=== PATIENT | male | born 1960 | race Caucasian/White ===

== ENCOUNTER 2023-09-02 07:52 | Day surgery (SDC) | payer OTHER ==
--- NOTE | 2023-09-01 13:56 | RAD REPORT ---
EXAM DESCRIPTION: RAD - Chest Single View - 09/01/2023 1:48 pm CLINICAL HISTORY: PRE-OP Chest pain. COMPARISON: <Comparisons> FINDINGS: Portable technique limits examination quality. The lungs are grossly clear. The heart is normal in size. No displaced fractures. IMPRESSION: No acute intrathoracic process suspected.
[2023-09-01 14:07] LABS: Absolute Lymphocytes (CBC) 1.4 K/uL (0.7-4.9); Hematocrit 41.8 % (39.6-49.0); Lymphocytes % 15.8 % (15.3-44.8); MCV 89.7 fL (80-100); MPV 7.4 fL (7.6-11.3); Platelets 267 thou/uL (152-406); RBC Red Blood Cell Count 4.66 M/uL (4.33-5.43)
[2023-09-02] MEDS ORDERED: CIPROFLOXACIN 400mg IV 400 MG/200 ML BAG IV ONE (08:33)
[2023-09-02] MEDS ORDERED: NA CHLORIDE 0.9% 1,000 ML ONE (08:33)
[2023-09-02] MEDS ORDERED: ONDANSETRON 4 MG (ODT) TAB ONE (08:40)
[2023-09-02] MEDS ORDERED: FENTANYL CITR 100 MCG/2 ML ONE (09:31)
[2023-09-02] MEDS ORDERED: MIDAZOLAM HCL 2 MG/2 ML INJ ONE (09:31)
[2023-09-02] MEDS ORDERED: ONDANSETRON 4 MG/2 ML VIAL ONE (09:31)
[2023-09-02] MEDS ORDERED: LIDOCAINE 2% MPF 5 ML VIAL ONE (09:31)
[2023-09-02] MEDS ORDERED: propofoL 200 MG/20 ML VIAL IV ONE (09:31)
[2023-09-02 09:48] LABS: Potassium 3.8 mEq/L (3.5-5.1)
[2023-09-02] MEDS: BACITRACIN OINTMENT 14 GM TUBE TOP ONE ×3 (10:20→10:34)
--- NOTE | 2023-09-02 10:24 | P.OP ---
Date of Service: 09/02/23 Preop diagnosis: Thrombosed hemorrhoid Postop diagnosis: Same, thrombosed hemorrhoid x 2 Procedure performed: EUA, proctoscopy and hemorrhoidectomy x 2 Surgeon: Adrian Ramirez MD Cardiology Technician: None Estimated blood loss: Minimal Specimen: Thrombosed hemorrhoid x 2 Findings: Left posterior and left lateral thrombosed hemorrhoid Anesthesia: General Complications: None Drains: None Fluids and blood products: Nonapplicable Disposition: Recovery room Operative note: Patient brought to the OR and placed in supine position. Genera l anesthesia begun. Patient placed in the lithotomy position. Patient prepped and draped in the usual sterile fashion. Exam under anesthesia and proctoscopy revealed 2 external thrombosed hemorrhoids. 1 in the left lateral position and 1 in the left posterior position. Harmonic scalpel used to excise both hemorrhoids. Each labeled and sent to pathology as specimen. Bleeding controlled with cautery. Sterile dressing applied. Patient awakened and taken to recovery room in good general condition. CC: Dr. Hernandez's office
[2023-09-02] MEDS ORDERED: HYDROCODONE/APAP 7.5/325 MG TAB PO PRN (10:27)
[2023-09-02] MEDS ORDERED: TRAMADOL HCL 50 MG TAB ONE (11:48)
[2023-09-02 13:08] VITALS: BP 120/74; TEMP 97; O2SAT 100
--- NOTE | 2023-09-03 15:21 | EKG ---
Test Date: 2023-09-01 Test Time: 14:35:06 Kiln Packer: ADOLFO MEASUREMENT RESULTS: Intervals: Rate: 67 MT: 148 QRSD: 80 QT: 348 QTc: 367 Hudson: P: 59 MT: 148 QRS: 28 T: 47 INTERPRETIVE STATEMENTS: Normal sinus rhythm Normal ECG Compared to ECG 01/25/1995 06:22:00 T-wave abnormality no longer present Electronically Signed On 09-03-23 15:13:33 PATENT DRAFTER by Jesse Levy
== END 2023-09-02 12:20 | disposition home or self-care (01) ==
LOC: OR 07:52
PROVIDERS: ATTEND Surgery
PROC: 06BY0ZC Excision of Hemorrhoidal Plexus, Open Approach (ICD-10-PCS; 2023-09-02)
PROC: 0DJD8ZZ Inspection of Lower Intestinal Tract, Via Natural or Artificial Opening Endoscopic (ICD-10-PCS; 2023-09-02)
PROC: 06BY0ZC Excision of Hemorrhoidal Plexus, Open Approach (ICD-10-PCS; principal; 2023-09-02 10:30)
DX: K64.5 Perianal venous thrombosis (principal); E11.9 Type 2 diabetes mellitus without complications; K21.9 Gastro-esophageal reflux disease without esophagitis; Z88.0 Allergy status to penicillin; Z88.5 Allergy status to narcotic agent
CPT/HCPCS: 93005; 85025; 80048; 36415 ×2; 82947; 88304; 71045; 46320 ×2; 45300; Q0162; J2704; J2001; J2250; J3010; J2405; J0744; J7030

== ENCOUNTER 2025-07-18 11:17 | Day surgery (SDC) | payer OTHER ==
--- NOTE | 2025-07-05 13:46 | RAD REPORT ---
EXAM: Chest Pa And Lat (2 Views) HISTORY: 64 years Male PREOEDURE COMPARISON: No prior exams FINDINGS: LUNGS/PLEURA: The lungs are clear. No pleural effusions or pneumothorax. No pulmonary edema. CARDIAC/MEDIASTINUM: The cardiac silhouette is within normal limits. UPPER ABDOMEN: No significant abnormality. BONES: No acute abnormality. LINES/TUBES/OTHER: N/A IMPRESSION: No evidence of acute cardiopulmonary disease.
[2025-07-05 13:56] LABS: Absolute Lymphocytes (CBC) 1.7 K/uL (0.7-4.9); Hematocrit 43.7 % (39.6-49.0); Hemoglobin 14.4 g/dL (13.6-17.9); MCH 29.5 pg (27.0-35.0); MCHC 32.9 g/dL (32.0-36.0); MCV 89.7 fL (80-100); MPV 7.8 fL (7.6-11.3); Nucleated RBC Absolute Count 0.0 (0-0); Nucleated Red Blood Cells % 0.2 % (0-0); RBC Red Blood Cell Count 4.88 M/uL (4.33-5.43); White Blood Count 8.00 thou/uL (4.3-10.9)
[2025-07-05 14:00] LABS: Urine Microscopic Reflex YN NO UMIC
[2025-07-05 14:06] LABS: PT Prothrombin Time 12.8 SECONDS (10-13.0); Protime INR 1.14
[2025-07-05 14:10] LABS: Anion Gap 8.4 mEq/L (5.0-15.0); BUN Blood Urea Nitrogen 22.0 mg/dL (7-18); Glucose Level 148.0 mg/dL (74-106); Potassium 4.4 mEq/L (3.5-5.1)
[2025-07-18] MEDS: Ringers Lactate 1,000 ML IV ONE (11:46)
[2025-07-18] MEDS ORDERED: FENTANYL CITR 100 MCG/2 ML ONE ×3 (14:09→16:45)
[2025-07-18] MEDS ORDERED: LIDOCAINE 2% MPF 5 ML VIAL ONE (14:09)
[2025-07-18] MEDS ORDERED: ONDANSETRON 4 MG/2 ML VIAL ONE (14:09)
[2025-07-18] MEDS ORDERED: MIDAZOLAM HCL 2 MG/2 ML INJ ONE (14:11)
[2025-07-18] MEDS: CLINDAMYCIN 600MG/D5W 50 ML IV ONE (14:25)
[2025-07-18] MEDS ORDERED: EPHEDRINE SULF 50 MG/ML VIAL ONE (14:38)
[2025-07-18] MEDS: GENTAMICIN 80 MG/100 ML BAG 160 MG/200 ML BAG IV ONE (14:39)
[2025-07-18] MEDS: BUPIVACAINE 0.25% PF 30 ML VIAL ONE (15:06)
[2025-07-18] MEDS ORDERED: Ringers Lactate 1,000 ML IV ONE (16:39)
[2025-07-18] MEDS ORDERED: ROCURONIUM 50 MG/5 ML VIAL IV ONE (16:55)
[2025-07-18] MEDS ORDERED: SUGAMMADEX SODIUM 200 MG/2 ML VIAL IV ONE (17:14)
[2025-07-18] MEDS ORDERED: BACITRACIN OINTMENT 14 GM TUBE TOP ONE (17:41)
--- NOTE | 2025-07-18 17:53 | P.OP ---
Date of Service: 07/18/25 Preop diagnosis: Right inguinal hernia Postop diagnosis: Same, right direct inguinal hernia Procedure performed: Repair of right inguinal hernia with Marlex mesh Surgeon: Adrian Ramirez MD Clerical Grader: Safia KO Estimated blood loss: Minimal Specimen: Cord lipoma Findings: As above Anesthesia: General Complications: None Drains: None Fluids and blood products: Nonapplicable Disposition: Recovery room Intraoperative consultation: Patient is a 65-year-old gentleman who is undergoing a right spermatocele ectomy by Dr. Montano via a scrotal incision. Upon dissection, a large hernia was found. Intraoperative consultation was obtained. Hernia was identified. Informed consent was obtained from the . She understood risk, benefits and alternatives and agreed to procedure. Patient was noted to have a fat-containing hernia. Operative note: Patient was already anesthetized and prepped and draped in the usual standard fashion. Marcaine 0.5% was infiltrated locally. A 5 cm oblique incision was made between the pubic tubercle and and the right anterior superior iliac spine. Subcutaneous tissue divided and bleeding controlled with cautery. Lalitha's fascia identified and divided. Aponeurosis of the external abdominal bleak identified. The aponeurosis mobilized inferiorly to expose shelving edge. The aponeurosis was opened via a 15 blade through the external ring. Cord was identified and mobilized at the pubic tubercle. Ilioinguinal nerve was identified and retracted out of the field of dissection. A very large cord lipoma was identified. And a direct hernia was identified. Dissection proceeded to identify the base of the cord lipoma. And then the cord was excised and the base was tied with multiple 2-0 silk ties. Indirect inguinal hernia remained. A large Marlex mesh plug placed and secured with an absorbable tacker. Onlay mesh was placed on the inguinal floor and secured medially to the pubic tubercle, inferior to the shelving edge, superior to the conjoined tendon and laterally to each other. Ilioinguinal nerve and cord structures were placed back in their anatomic location. 2-0 Prolene was used to close the aponeurosis. 3-0 chromic was used to reapproximate the Lalitha's fascia. Sudheer were used to close skin. At this point, Dr. Montano closed the scrotal incision. Sterile dressing will be applied and patient awakened. Patient will be taken to recovery room. Patient is in stable condition at this time. CC:
--- NOTE | 2025-07-18 18:16 | P.OP ---
Date of Service: 07/18/25 Preoperative diagnoses: Right hemiscrotal swelling Right fat-containing inguinal hernia Postoperative diagnoses: Lipoma of the cord Right direct fat-containing inguinal hernia Principal procedures: Right hemiscrotal exploration and excision of lipoma of the cord Temporary insertion of 16 Bulgarian coud urethral Stoddard catheter Indications for procedure: 65-year-old gentleman with bothersome right hemiscrotal swelling initially was seen by Dr. Chavira who completed a CT scan identifying the presence of fat and an inguinal hernia. He also underwent a scrotal ultrasound which suspected a right hydrocele. On clinical evaluation, I did not suspect a hydrocele, instead, I suspected possible spermatocele versus lipoma of the cord. As a result, patient was counseled that he may undergo scrotal excision and subsequently require operative management of his hernia. He elected to proceed with the scrotal evaluation first. Procedure note: The patient was consented in the preoperative holding area before being transferred to the operative suite where general anesthesia was induced. He was given clindamycin 600 mg and gentamicin 160 mg IV antimicrobial prophylaxis, and pneumoboots were provided for DVT prophylaxis. He was placed supine on the procedure table, padded and secured appropriately. His genitalia was shaved, pr epped with Betadine, and draped in standard fashion. The case was begun identifying a Kaci's line incision in the right superior hemiscrotum about three quarters of an inch in diameter. Subcutaneous benigno percent Marcaine was given and that Kaci's line incision was incised using a 15 blade. This was then deepened through the subcutaneous tissues using electrocautery and through the dartos layers until the parietal layer of the tunica vaginalis was extensively encountered. I then delivered the testis and its tunics through the incision into the operative space, and continued to release the dartos layers off of the tunica vaginalis. As I continued the dissection, I discovered there was essentially a large fat-containing structure within the tunica vaginalis traveling alongside the cord into the region of the epididymis. Outside of the tunica vaginalis medially, a separate lipomatous structure was encountered. As a result, I began dissecting and freeing the medial lipomatous structure from the external aspect of the tunica vaginalis, and I dissected it until I reached a pedicle that was very superior within the right hemiscrotum. I utilized 3-0 silk sutures to ligate components of the pedicle and divided and removed the fat from that component of the lipoma of the cord. I then opened the parietal layer of the tunica vaginalis superiorly overlying the fat structure, and then began to release the lipomatous structure off of the cord going to the testis. In the process, there did appear to be peristalsis suggesting the potential presence of bowel within that pedicle of fat, which was suspected to be omentum. I dissected off the cord as superiorly as possible within the scrotum through the very small incision created. At this point, it seemed apparent that this was likely the component of an inguinal hernia that required management; so we reached out to his pre-existing general surgeon, Dr. Chavira, but he was unavailable at another hospital at this time. As a result, Dr. Ramirez who was on-call, came in and evaluated the patient. After speaking with the patient's , who agreed with my assessment that he very likely wanted this all taken care of in a single operative excursion, Dr. Ramirez then took over and made a inguinal incision to complete the excision of a very large direct inguinal hernia with lipoma/omentum emanating down and into the scrotum, continuing on the dissection I begun releasing it off of the cord structures. Please see his operative dictation for his portion of the procedure. I then returned at the completion of his procedure and irrigated the right hemiscrotum. I had placed 1/4 inch Fitzwilliam drain inferior to the scrotal incision and secured in place using 3-0 nylon suture. After irrigating, I then closed the dartos layers using 3-0 Vicryl in a running fashion, and then closed the skin and subcutaneous tissues using 3-0 chromic. Bacitracin was applied to the incision site and around the Zackery drain. Fluff gauze and a scrotal support was applied. The inguinal incision was also dressed accordingly. Because the total operative time was now over 3 hours, I then utilized a 16 Bulgarian coud tip Stoddard catheter, which I passed via his urethra into his bladder with ease and I decompressed his bladder of several 100 cc of clear yellow urine. I then remove the catheter. He was then awakened from general anesthesia, transferred to a stretcher, and then transferred to the recovery room in good condition. Complications: None Discharge disposition: You should monitor the qualitative amount of drainage coming from the Fitzwilliam drain, and once that becomes relatively minimal, hopefully by Thursday, he can come into the office and we will remove the Fitzwilliam drain. If not, we will target Thursday to have it removed. I did give him a prescription for Bactrim DS to take for the next 5 days, largely to cover all of the manipulation but also while the Zackery drain is in place. Subsequent follow-up should be established with me in about 2-3 months
[2025-07-18] MEDS: HYDROMORPHONE HCL 1 MG/ML INJ ONE (18:25)
[2025-07-18] MEDS: ONDANSETRON 4 MG/2 ML VIAL ONE (18:29)
[2025-07-18] MEDS: FENTANYL CITR 100 MCG/2 ML ONE (18:39)
[2025-07-18] MEDS ORDERED: TAMSULOSIN 0.4 MG SR CAP ONE (19:38)
[2025-07-18] MEDS ORDERED: HYDROCODONE/APAP 5/325 MG TAB ONE (19:38)
[2025-07-18] MEDS: TAMSULOSIN 0.4 MG SR CAP PO ONE (19:40)
[2025-07-18] MEDS: HYDROCODONE/APAP 5/325 MG TAB PO PRN (19:40)
[2025-07-18 20:08] VITALS: BP 151/60; TEMP 98; O2SAT 98
[2025-07-18] MEDS: Oxycodone HCl/Acetaminophen 5/325 MG TAB ONE (20:34)
== END 2025-07-18 21:15 | disposition home or self-care (01) ==
LOC: OR 11:17
PROVIDERS: ATTEND Urology
PROC: 0JBB0ZZ Excision of Perineum Subcutaneous Tissue and Fascia, Open Approach (ICD-10-PCS; principal; 2025-07-18 13:15)
PROC: 0VJ80ZZ Inspection of Scrotum and Tunica Vaginalis, Open Approach (ICD-10-PCS; 2025-07-18 13:15)
DX: N43.41 Spermatocele of epididymis, single (principal); N50.82 Scrotal pain; K40.90 Unilateral inguinal hernia, without obstruction or gangrene, not specified as recurrent
CPT/HCPCS: 55520; 55110; 93005; 85025; 80048; 36415; 85610; 88304; 81003; 71046; J2704; J2003; J2250; J3010 ×4; J1171; J2405 ×2; J7120 ×2; J1580; 88302